=== PATIENT | male | born 1970 | race Caucasian/White ===

== ENCOUNTER 2016-11-08 11:35 | Emergency (ER) | payer MEDICAID, OTHER ==
[~2016-11-08] VITALS: Ht 177.8 cm; Wt 177.6 kg
[2016-11-08 11:35] VITALS: BP 139/80
[2016-11-22] MEDS ORDERED: NO MEDICATIONS (11:08)
== END 2016-11-08 13:06 | disposition home or self-care (01) ==
LOC: M ED 11:35
DX: S46.211A Strain of muscle, fascia and tendon of other parts of biceps, right arm, initial encounter (principal); X50.9XXA Other and unspecified overexertion or strenuous movements or postures, initial encounter; Y92.099 Unspecified place in other non-institutional residence as the place of occurrence of the external cause; Y93.89 Activity, other specified; Y99.9 Unspecified external cause status

== ENCOUNTER 2016-11-23 06:52 | Day surgery (SDC) | payer OTHER ==
[~2016-11-23] VITALS: Ht 177.8 cm; Wt 112.5 kg
[~2016-11-23 06:52] MED LIST: NO MEDICATIONS
[2016-11-23] MEDS ORDERED: LIDOCAINE 1% SDV 5 ML VIAL SQ ONE (07:00)
[2016-11-23] MEDS ORDERED: LR 1,000 ML IV SCH ×3 (07:00→12:30)
[2016-11-23] MEDS ORDERED: METOCLOPRAMIDE INJ 10MG/2ML VIAL (J2765) As Ordered ONE (08:20)
[2016-11-23] MEDS ORDERED: fentaNYL 100 MCG/2 ML INJECTION (J3010) As Ordered ONE ×2 (08:20→10:11)
[2016-11-23] MEDS ORDERED: LIDOCAINE 2% INJ 100 MG/5 ML SDV (FOR ANES.) As Ordered ONE (08:20)
[2016-11-23] MEDS ORDERED: dexameTHASONE 4 MG/ML 1ML VIAL (J1100) As Ordered ONE (08:20)
[2016-11-23] MEDS ORDERED: PROPOFOL 200 MG/20 ML VIAL As Ordered ONE (08:20)
[2016-11-23] MEDS ORDERED: ONDANSETRON 4MG/2ML VIAL (J2405) As Ordered ONE (08:20)
[2016-11-23] MEDS ORDERED: MIDAZOLAM INJ 2 MG/2 ML VIAL (J2250) As Ordered ONE (08:21)
[2016-11-23] MEDS ORDERED: ROCURONIUM BROMIDE 50 MG/5 ML VIAL/SYRINGE As Ordered ONE (08:51)
[2016-11-23] MEDS ORDERED: BUPIVACAINE HCL 0.5% 30 ML VIAL As Ordered ONE (11:10)
[2016-11-23] MEDS: PERCOCET 5MG/325MG TAB PO PRN ×2 (12:00→12:37)
[2016-11-23] MEDS ORDERED: PERCOCET 5MG/325MG TAB As Ordered ONE (12:01)
[2016-11-23] MEDS ORDERED: fentaNYL 100 MCG/2 ML INJECTION (J3010) IV PRN (12:15)
[2016-11-23] MEDS ORDERED: ONDANSETRON 4MG/2ML VIAL (J2405) IV PRN (12:15)
[2016-11-23 13:20] VITALS: BP 109/64
--- NOTE | 2016-11-24 12:20 | REP ---
C-ARM VIEWS RIGHT ELBOW: Multiple C-arm views right elbow performed during biceps tendon repair. There is a small metallic plate placed in the proximal right radius. 29 seconds fluoroscopy time utilized for the procedure. Signed by Macho Cintron MD 11/24/2016 07:51 P
--- NOTE | 2016-11-26 08:45 | RO ---
DATE OF PROCEDURE: 11/23/2016 PREOPERATIVE DIAGNOSIS: Right high-grade partial thickness distal biceps tendon rupture. POSTOPERATIVE DIAGNOSIS: Near complete distal biceps tendon rupture on the right side. PROCEDURE: Right open distal biceps tendon repair. SURGEON: Dr. Michael Patel BAKER PIE: ANUJ Vuong ANESTHESIA: General. INTRAVENOUS (IV) FLUIDS: Lactated Ringer's. ESTIMATED BLOOD LOSS: 50 mL. IMPLANTS: Arthrex distal biceps tendon button and interference screw. CLOSURE: Monocryl and Steri-Strips. INDICATION: Barry is a 46-year-old male who injured his right arm back in early October and he felt a pop and had pain in his distal biceps. He had weakness of supination, and an MRI was obtained which revealed an 85% tear of the distal biceps tendon. Given his high activity level, young age, and near complete tear, I recommended operative management. We discussed the risks and benefits of open distal biceps tendon repair, and written informed consent was obtained. DESCRIPTION OF PROCEDURE: The patient was identified in the preoperative holding area, and the right arm was initialed by myself. He was brought to the operating room and placed supine on a well-padded operating room (OR) table. General anesthesia induced without complication. The right arm was prepped and draped in the normal sterile fashion. He received appropriate IV antibiotics within 1 hour of incision. A time-out was then performed, in which myself and all OR staff confirmed the patient's name, medical record number, date of , and the correct side, site, and procedure. A 3 cm incision was made three fingerbreadths distal to the elbow flexion crease with a #15 blade. Superficial dissection with Metzenbaum scissors. The lateral antebrachial cutaneous nerve was quickly identified and protected throughout the case. The forearm fascia was opened with Metzenbaum scissors and then blunt dissection down to the radial tuberosity with finger dissection. The forearm was held in supination by the emergency medical technician to avoid damage to the posterior interosseous nerve (PIN). There were a few fibers of the biceps tendon remaining on the proximal portion of the tuberosity, and those were released with a schuler elevator. The distal biceps tendon stump was identified but was unable to be retrieved and pulled distally down to its attachment. I, therefore, made a separate 1.5 cm transverse incision over the biceps muscle/tendon junction. Fascia was opened with Metzenbaum scissors, and a right angle clamp was used to isolate the distal biceps tendon. Finger dissection down the biceps tendon sheath and a Kristine clamp was placed from proximal to distal. I then, with traction, was then able to retrieve the biceps tendon through that proximal incision. There was very impressive tendinopathy. The tendon had a likely 12 mm diameter with fatty degeneration. The tissue was sharply excised with curved Stringer scissors down to healthy core of biceps tendon. The Arthrex distal biceps tendon kit was opened, and the FiberLoop suture used to place a running locking whipstitch through the distal 3 cm of the tendon. The FiberWire sutures were then passed from the proximal to distal incision and loaded through the button. Attention was then turned toward drilling in the radial tuberosity. Hohmann and [employer] retractors were positioned to protect the soft tissues, and the Arthrex guide pin was advanced on power into the radial tuberosity just distal to the midpoint and cheating toward the ulnar side. Appropriate position was confirmed on AP view using mini C-arm. The guide pin was then advanced bicortically, and I used the 8 cannulated reamer over the guide pin to drill a unicortical socket. The socket was in the far ulnar aspect of the tuberosity with just under 2 mm bone bridge. At this point, the incision was extensively irrigated with normal saline to remove bony debris. The button was then placed through the drill hole on its board winder and the sutures were toggled to flip the button, and then the tendon was docked into the socket. With the elbow in 30 degrees of flexion, sutures were maximally tensioned and the free needle from the Arthrex kit was used to pass one limb of the suture back through the tendon to lock the construct in place. Knots were then tied by hand to secure the construct. One limb of the FiberWire was then placed through the [employer] mobile lounge driver and the interference screw from the kit was advanced on the [employer] mobile lounge driver, which placed the tendon further ulnar within the socket. There was good fixation with the screw. Sutures were then tied over the button and excess suture trimmed and discarded. Both incisions were then extensively irrigated with normal saline. The forearm fascia was closed with figure-of-8 #2-0 Vicryl suture and then subcuticular closure with #2-0 Vicryl and a running #3-0 Monocryl. The lateral antebrachial cutaneous nerve was identified at the end of the case and was noted to be intact. The proximal incision was closed with #2-0 Vicryl and #3-0 Monocryl and then Steri-Strips. I injected 15 mL of 0.5% Marcaine without epinephrine. A bulky sterile bandage was applied, and then he was placed into a well-padded posterior splint and a sling. All counts correct times two. COMPLICATIONS: None. DISPOSITION: Patient was extubated and transferred to postanesthesia care unit (PACU) in stable condition. In the PACU, he was noted to fire extensor pollicus longus (EPL), flexor pollicus longus (FPL), interosseous (IO) and extensor digitorum communis (EDC). Sensation to light touch was intact. He will have 24 hours of antibiotic prophylaxis. Followup in 10 days for suture removal and transition to hinge elbow brace.
== END 2016-11-23 13:37 | disposition home or self-care (01) ==
LOC: M SDC 06:52
PROVIDERS: ATTEND Orthopaedic Surgery
DX: S46.211A Strain of muscle, fascia and tendon of other parts of biceps, right arm, initial encounter (principal); X58.XXXA Exposure to other specified factors, initial encounter; Y92.89 Other specified places as the place of occurrence of the external cause; Y99.9 Unspecified external cause status; K21.9 Gastro-esophageal reflux disease without esophagitis; Y93.9 Activity, unspecified
CPT/HCPCS: 24342; 76000; C1713